=== PATIENT | male | born 1960 | race Caucasian/White ===

== ENCOUNTER 2016-05-09 12:33 | Inpatient (IN) | payer OTHER ==
[~2016-05-09] VITALS: Ht 180.3 cm; Wt 70.8 kg
[2016-05-09 11:50] VITALS: BP 103/54
--- NOTE | 2016-05-09 11:50 | NUR ---
PATIENT ARRIVED IN THE UNIT IN A GURNEY. PATIENT AWAKE, ALERT, ORIENTED AND AMBULATORY. NO S/S OF DISTRESS NOTED. PATIENT ON 2L O2 VIA NC. MIDLINE NOTED TO THE RIGHT UPPER ARM. COLOSTOMY BAG NOTED TO THE LEFT ABD AND CHOLECYSTOSTOMY BAG NOTED TO THE RIGHT ABD, BOTH DRAINING SMALL AMOUNT OF GREENISH DRAINAGE. BED LOWERED WITH CALL LIGHT WITHIN REACH. WILL CONTINUE TO MONITOR
[2016-05-09] MEDS ORDERED: PANTOPRAZOLE SO40 M1 IVP (13:24)
[2016-05-09] MEDS ORDERED: HYDROMORPHONE HC4 M1 IM/IV (13:24)
[2016-05-09] MEDS ORDERED: GLUCAGEN1 MG IVP (13:24)
[2016-05-09] MEDS ORDERED: ZINC GLUCONATE PO (13:24)
[2016-05-09] MEDS ORDERED: PROBIOTIC1 EACH PO (13:24)
[2016-05-09] MEDS ORDERED: OCTREOTIDE IJ (13:24)
[2016-05-09] MEDS ORDERED: LORAZEPAM0.5 M1 PO (13:24)
[2016-05-09] MEDS ORDERED: FENTANYL50 MCG/HR TD (13:24)
[2016-05-09] MEDS ORDERED: VITAMIN C500 M8 PO (13:24)
[2016-05-09] MEDS ORDERED: NOVAPLUS MEROPEN1 GM IV (13:24)
[2016-05-09] MEDS ORDERED: LOVENOX40 MG/0.1 SUBQ (13:24)
[2016-05-09] MEDS ORDERED: DEXTROSE 50% 50 ML SYR IVP PRN (13:25)
[2016-05-09] MEDS ORDERED: INSULIN ASPART SLIDING SCALE 100 UNITS/ML VIAL SUBQ PRN (13:25)
--- NOTE | 2016-05-09 13:55 | NUR ---
SPOKE WITH DR POST. ORDERS TO CONTINUE MEDS FROM [facility]. TO SEE THE PATIENT LATER TODAY
[2016-05-09] MEDS ORDERED: TPN PER PHARMACY MC PRN (14:00)
[2016-05-09] MEDS ORDERED: LORazepam 0.5 MG TAB PO PRN (14:00)
[2016-05-09] MEDS ORDERED: GLUCAGON 1 MG VIAL IVP PRN (14:00)
[2016-05-09] MEDS: HYDROmorphone PFS 4 MG/ML SYR IVP PRN ×3 (14:59→20:35)
[2016-05-09 16:00] VITALS: BP 106/63
[2016-05-09] MEDS: BLOOD GLUCOSE MONITORING 1 DEV DEV FS SCH ×2 (16:30→21:00)
--- NOTE | 2016-05-09 16:30 | NUR ---
PATIENT RESTING CALMLY IN BED, WATCHING TELEVISION. NO S/S OF DISTRESS NOTED
--- NOTE | 2016-05-09 17:30 | NUR ---
PATIENT SEEN BY DR VEGA
--- NOTE | 2016-05-09 18:35 | NUR ---
PATIENT REPORT GIVEN AT BEDSIDE. PATIENT ENDORSED IN STABLE CONDITION
[2016-05-09] MEDS ORDERED: MAGNESIUM CITRATE 300 ML BTL PO ONE (18:55)
--- NOTE | 2016-05-09 19:10 | NUR ---
RECEIVED PT FROM MAYNOR GAMBLE PT IS AAOX4 RESTING ON BED MID LINE ON RT US ILNFUSING TKO AND RT ABD COLECYSTOTOMY DRAINING GREENISH AND OSTOMYK FROM ENTEROCUTANEOUS FISTULA DRAINING YELLOW COLOR LIQUID INITIAL ASSESSMENT DONE.
[2016-05-09 20:00] VITALS: BP 96/53
[2016-05-09] MEDS ORDERED: [UNRECOGNIZED DRUG - OTHER] IV SCH (20:00)
[2016-05-09] MEDS ORDERED: DEXTROSE IV SCH (20:00)
[2016-05-09] MEDS ORDERED: MULTIVITAMIN IV SCH (20:00)
[2016-05-09] MEDS ORDERED: AMINO ACIDS IV SCH (20:00)
[2016-05-09] MEDS: SACCHAROMYCES 250 MG CAP PO SCH (20:38)
[2016-05-09] MEDS ORDERED: MEROPENEM 1,000 MG VIAL IV SCH (21:00)
[2016-05-09] MEDS ORDERED: NON-FORMULARY ITEM (Lactobacillus Acidophilus (Probiotic) 1 EACH) PO SCH (21:00)
--- NOTE | 2016-05-09 21:00 | NUR ---
PT ON TPN ON RT UA MID LINE AFTER PAIN MEDIC PT DENNIES ANY PAIN , PENDING FOR ABD/PELVIS CT WITH ORAL CONTRAST
[2016-05-09] MEDS: MEROPENEM 1,000 MG in NACL 0.9% 100 ML IV SCH (21:04)
[2016-05-09] MEDS ORDERED: MAGNESIUM CITRATE 300 ML BTL ONE (21:11)
[2016-05-10] VITALS (25 sets, daily range): BP systolic 84–144; BP diastolic 43–88
[2016-05-10] MEDS: HYDROmorphone PFS 4 MG/ML SYR IVP PRN ×5 (00:05→17:00)
--- NOTE | 2016-05-10 02:17 | NUR ---
PT CAME BACK FROM ABD/PELVIS CT WITH ORAL CONTRAST
--- NOTE | 2016-05-10 04:05 | NUR ---
PT SLEEPING WELL AFTER PAIN MEDIC GIVEN RT AND LEFT TUBE FROM OSTOMY ARE [id number] WELL YELLOW WISH COLOR
[2016-05-10] MEDS: MEROPENEM 1,000 MG in NACL 0.9% 100 ML IV SCH ×3 (05:00→21:48)
[2016-05-10] MEDS: BLOOD GLUCOSE MONITORING 1 DEV DEV FS SCH ×4 (06:42→21:18)
--- NOTE | 2016-05-10 06:49 | NUR ---
BLOOD SUGAR TEST 105, TICKET TO RIDE AND SURGICAL CHECK LIST READY,AND CONSENT FOR SURGERY PT SLEEPING AFTER PAIN MEDIC GIVEN.
--- NOTE | 2016-05-10 07:30 | NUR ---
RECEIVED PT RESTING COMFORTABLY IN BED, AAOX4, ABLE TO VERBALIZE NEEDS; NO COMPLAINTS OR S/S ACUTE DISTRESS AT THIS TIME. PREOP,ROUTINE/PLAN OF CARE DISCUSSED AND REVIEWED WITH SISTER PRESENT, PT VERBALIZES UNDERSTANDING AND COMPLIANCE. TPN INFUSING WELL TO RIGHT UPPER ARM, SITE ASYMPTOMATIC. ABD RED AND TENDER TO TOUCH. LLQ ABD FISTULA, GREEN DRAINAGE, OUTPUT 700ML AT THIS TIME. RUQ CHOLECYSTOSTOMY. SAFETY PRECAUTIONS MAINTAINED. OR TEAM AT BEDSIDE TO TRANSPORT PT AT THIS TIME, VSS.
--- NOTE | 2016-05-10 07:45 | NUR ---
PT TAKEN TO OR AT THIS TIME IN STABLE CONDITION.
[2016-05-10] MEDS ORDERED: ROCURONIUM 50 MG/5 ML VIAL IV ONE (07:56)
[2016-05-10] MEDS ORDERED: DESFLURANE 240 ML BTL INH ONE (07:56)
[2016-05-10] MEDS ORDERED: LIDOCAINE 2% 100 MG/5 ML SYR IVP ONE (07:56)
[2016-05-10] MEDS ORDERED: ONDANSETRON 4 MG/2 ML VIAL ONE (07:56)
[2016-05-10] MEDS ORDERED: ePHEDrine 50 MG/ML VIAL ONE (07:56)
[2016-05-10] MEDS ORDERED: DEXAMETHASONE 4 MG/ML VIAL ONE (07:56)
[2016-05-10] MEDS ORDERED: PHENYLEPHRINE 10 MG/ML VIAL ONE (07:56)
[2016-05-10] MEDS ORDERED: PROPOFOL 200 MG/20 ML VIAL IV ONE (07:56)
[2016-05-10] MEDS ORDERED: SUCCINYLCHOLINE CHLORIDE 200 MG/10 ML VIAL IVP ONE (07:56)
[2016-05-10] MEDS ORDERED: fentaNYL 0.05 MG/ML VIAL ONE (08:08)
[2016-05-10] MEDS ORDERED: MIDAZOLAM 2 MG/2 ML VIAL ONE (08:08)
[2016-05-10] MEDS: BUPIVACAINE-MPF/EPI 0.25% 30 ML VIAL INJ ONE ×2 (08:31→13:06)
[2016-05-10] MEDS: ENOXAPARIN 40 MG/0.4 ML SYR SUBQ SCH (09:00)
[2016-05-10] MEDS ORDERED: HYDROmorphone 1 MG/ML AMP IVP PRN (09:00)
[2016-05-10] MEDS: SACCHAROMYCES 250 MG CAP PO SCH ×2 (09:00→21:00)
[2016-05-10] MEDS: PANTOPRAZOLE 40 MG INJ VIAL IVP SCH (09:00)
[2016-05-10] MEDS: ASCORBIC ACID 500 MG TAB PO SCH (09:00)
[2016-05-10] MEDS ORDERED: ZINC GLUCONATE 100 MG PO SCH (09:00)
[2016-05-10] MEDS ORDERED: ONDANSETRON 4 MG/2 ML VIAL IVP PRN (09:00)
[2016-05-10] MEDS ORDERED: CLINICAL MONITORING MC SCH (09:00)
--- NOTE | 2016-05-10 09:17 | NUR ---
PATIENT HAS BEEN SCREENED AND CATEGORIZED HIGH NUTRITION RISK. PATIENT WILL BE SEEN WITHIN 1-2 DAYS OF ADMISSION. 05/10/16-05/11/[address]
[2016-05-10] MEDS ORDERED: HYDROmorphone PFS 2 MG/ML SYR ONE (10:56)
--- NOTE | 2016-05-10 11:03 | NUR ---
CM NOTE INITIAL REVIEW FAXED TO [facility] / FAX# [phone], ATTN: HANS [phone]
[2016-05-10] MEDS ORDERED: ALBUMIN HUMAN 5 % 250 ML IV SCH ×2 (11:33→13:00)
--- NOTE | 2016-05-10 12:14 | NUR ---
PER KNITTING MACHINE OPERATOR HELPERTYE MARSHALL PT WILL BE TRANSFERRED TO ICU5 POST-OP.
--- NOTE | 2016-05-10 13:00 | NUR ---
PT AWAKE ALERT AND RESPONSIVE, NO SIGNS OF ACUTE DISTRESS. TRANSFERRED FROM OR. S/P EXP LAP, NOTED ABDOMINAL SURGICAL INCISION WITH DRESSING INTACT AND DRY, ABDOMINAL BINDER IN PLACE. NO SIGNS OF ANY BLEEDING OR DISCHARGE. MARIBELL DRAIN NOTED ALSO ON ABDOMINAL INCISION AT 40CC, SEROSANGUINEOUS FLUID. NG TUBE IN PLACE ON RIGHT NARE, INTACT AND CONNECTED TO HIGH INTERMITTENT SUCTION. NOTED GREENISH FLUID ON CANISTER AT 20CC. DR. VEGA IS AWARE. OFFLOAD TO PRESSURE AREAS, ELEVATED BOTH LEGS ON PILLOWS. SCD'S IN PLACE. PERAZA CATHETER IN PLACE AT 5CC OF YELLOW URINE NOTED. OUTPUT FROM OR AT 325ML REPORTED. WITH RIGHT UPPER ARM PICC AND UNDERGOING 1 UNIT OF PRBC ORDERED. TOLERATING WELL. NO SIGNS OF ADVERSE EFFECTS NOTED. SAFETY PRECAUTIONS MAINTAINED. NO C/O OF PAIN AT THIS TIME. ALL NEEDS ATTENDED. CALL LIGHT WITHIN REACH.
--- NOTE | 2016-05-10 13:34 | NUR ---
PER ASSIGNED OR NURSE. PT WAS GIVEN ALBUMIN X2 FROM OR.
--- NOTE | 2016-05-10 13:46 | NUR ---
WAS SEEN BY Remberto NOGUERA NO ORDERS AT THIS TIME. CONTINUE TO MONITOR.
[2016-05-10] MEDS ORDERED: HYDROmorphone-HP 10 MG in NACL 0.9% 50 ML IV SCH ×2 (14:00→17:30)
--- NOTE | 2016-05-10 14:15 | NUR ---
1 UNIT OF PRBC ADMINISTERED. NO ADVERSE EFFECTS NOTED. CONTINUE TO MONITOR.
--- NOTE | 2016-05-10 14:16 | NUR ---
NEW ORDERS RECEIVED FROM Remberto NOGUERA NOTED AND CARRIED OUT.
[2016-05-10] MEDS ORDERED: ARTIFICIAL TEARS OPHTH OINT 3.5 GM TUBE OP PRN (15:15)
[2016-05-10] MEDS ORDERED: POLYVINYL ALCOHOL 1.4% OP 15 ML SOL OP PRN (15:20)
[2016-05-10] MEDS: INSULIN LISPRO SLIDING SCALE 100 UNITS/ML VIAL SUBQ PRN ×2 (16:41→21:23)
--- NOTE | 2016-05-10 17:03 | NUR ---
NEW LAB ORDERS RECEIVED FROM DR. POST. NOTED AND CARRIED OUT.
[2016-05-10] MEDS ORDERED: NALOXONE 0.4 MG/ML VIAL IVP PRN (17:40)
[2016-05-10] MEDS ORDERED: PROBIOTIC SCREEN 1 EA MISC MC PRN (17:50)
--- NOTE | 2016-05-10 19:19 | NUR ---
PT ALERT AND RESPONSIVE, NO SIGNS OF ACUTE DISTRESS. ENDORSED TO ONCOMING TAG STRINGER NURSE FOR CONTINUITY OF CARE.
--- NOTE | 2016-05-10 19:20 | NUR ---
RECEIVED REPORT FROM KATHYA RN AT BEDSIDE. PATIENT IS AAOX4, ABLE TO FOLLOW COMMANDS AND MAKE NEEDS KNOWN. C/O SEVERE PAIN AT ABD SURGICAL AREA, ON RAIL CAR REPAIRMAN. MD AWARE, NO OTHER ORDER FOR PAIN CONTROL AT THIS TIME. NO S/S SOB/DISTRESS NOTED, LUNG SOUNDS CLEAR, ON O2 AT 6L/MIN WITH MASK. NGT ON RIGHT DAVI WITH HIGH INTERMITTENT SUCTION. CURRENTLY ON NPO EXCEPT MEDS. SR ON MUNICIPAL SERVICES MANAGER. SURGICAL INCISION NOTED ON ABD, S/P EXP LAP TODAY, COVERED WITH DRESSING, C/D/I, MARIBELL DRAIN PRESENT WITH SEROSANGUINEOUS FLUID NOTED, AND ABDOMINAL BINDER IN PLACE. PERAZA CATHETHER IN PLANE, DRAINING WELL TO GRAVITY. ABLE TO MOVE ALL EXTREMITIES, SCD'S ON BLE FOR PREVENTION OF DVT. RIGHT UPPER ARM PICC LINE NOTED, PATENT, C/D/I, RUNNING TPN AT 83ML/HR, PERIPHERAL LINE ON LEFT FOREARM 18GA, RUNNING RAIL CAR REPAIRMAN AT SETTING OF 1MG/HR WITH 0.2MG/15MIN BOLUS. NO SIGNS OF ADVERSE EFFECTS NOTED. SAFETY PRECAUTIONS MAINTAINED. VSS. CALL LIGHT WITHIN REACH, WILL CONTINUE TO MONITOR.
[2016-05-10] MEDS: MULTIVITAMIN IV SCH (20:00)
[2016-05-10] MEDS: AMINO ACIDS IV SCH (20:00)
[2016-05-10] MEDS: [UNRECOGNIZED DRUG - OTHER] IV SCH (20:00)
[2016-05-10] MEDS: DEXTROSE IV SCH (20:00)
--- NOTE | 2016-05-10 20:15 | NUR ---
PATIENT IS ON MUSIC AGENT, REMOVED FENTANYL PATCH ON RIGHT UPPER ARM PER PROTOCOL.
--- NOTE | 2016-05-10 21:30 | NUR ---
PATIENT IS RESTING IN BED, STILL C/O PAIN, OFFERED ICE PAD, PATIENT REFUSED. SCHEDULED MEDICATION GIVEN, PATIENT TOLERATED WELL.
--- NOTE | 2016-05-10 22:00 | NUR ---
PATIENT STILL C/O PAIN AT ABD AREA, REMINDED PATIENT TO USE TELEGRAPH OPERATOR PUMP FOR PAIN, PATIENT STATED THE TELEGRAPH OPERATOR DID NOT WORK FOR PAIN. ASSESSED THE WOUND SITE, DRESSING STILL C/D/I. VSS. Addendum: 05/11/16 at 0542 by Cleo Andre RN CHARGE NURSE NOTIFIED, FRANCES HDEZ MD.
[2016-05-11] VITALS (16 sets, daily range): BP systolic 124–151; BP diastolic 56–81
--- NOTE | 2016-05-11 | NUR ---
PATIENT IS RESTLESSNESS, STILL C/O PAIN AND PAPERBOARD BOX MAKER NOT WORKING, EXPLAINED HOW PAPERBOARD BOX MAKER WORKING, AND DURATION OF THE MEDICATION, PATIENT IS AGITATED, REQUESTED ATIVAN. MEDICATION GIVEN ORDERED.
[2016-05-11] MEDS: LORazepam 2 MG/ML VIAL IVP PRN ×3 (00:29→15:38)
[2016-05-11] MEDS ORDERED: HYDROmorphone 1 MG/ML AMP IVP PRN (00:45)
[2016-05-11] MEDS ORDERED: HYDROmorphone 1 MG/ML AMP ONE (00:57)
--- NOTE | 2016-05-11 01:18 | NUR ---
PATIENT STILL C/O SEVERE PAIN AT ABD AREA, STATED " I CAN'T TOLERATED ANYMORE!" EXTRA ONE TIME DOSE OF DILAUDID GIVEN.
--- NOTE | 2016-05-11 02:00 | NUR ---
PATIENT IS ASLEEP AT THIS TIME. NO CHANGE OF CONDITION, VSS.
--- NOTE | 2016-05-11 04:30 | NUR ---
PATIENT IS AWAKE, C/O SEVERE PAIN AT ABD AREA, EDUCATED PATIENT TO USE PHOTOGRAPHY EDITOR PUMP. VSS.
--- NOTE | 2016-05-11 04:45 | NUR ---
OFFERED PATIENT FOR AM CARE, PATIENT REFUSED AT THIS TIME.
[2016-05-11] MEDS: MEROPENEM 1,000 MG in NACL 0.9% 100 ML IV SCH ×3 (04:49→20:29)
--- NOTE | 2016-05-11 05:00 | NUR ---
PATIENT IS AGITATED, STATED RD SCIENTIST PUMP IS NOT WORKING, PAIN COULD NOT RELEASE. REQUESTED IV PUSH MEDICATION, DR. SILVIA VO, WAITING FOR CALL BACK.
--- NOTE | 2016-05-11 05:30 | NUR ---
PATIENT STILL C/O SEVERE PAIN, DR. VEGA PAGED 2ND TIMES, WAITING FOR CALL BACK.
--- NOTE | 2016-05-11 05:55 | NUR ---
PATIENT IS CRYING AND AGITATED FOR PAIN, DR. VEGA PAGED 3RD TIMES, WAITING FOR CALLING BACK.
[2016-05-11] MEDS ORDERED: HYDROmorphone 1 MG/ML AMP IVP ONE (06:05)
--- NOTE | 2016-05-11 06:10 | NUR ---
DR. VEGA CALL BACK, REPORT DR ABOUT PATIENT CURRENT CONDITION, NEW ORDER GIVEN AND CARRIED OUT.
[2016-05-11] MEDS ORDERED: HYDROmorphone 1 MG/ML AMP IVP SCH (06:30)
[2016-05-11] MEDS: BLOOD GLUCOSE MONITORING 1 DEV DEV FS SCH ×3 (06:54→18:18)
--- NOTE | 2016-05-11 08:00 | NUR ---
RECEIVED REPORT FROM DEEPTI GAMBLE AT BEDSIDE. PATIENT IS AWAKE, ALERT, AND ORIENTED. PT C/O SEVERE PAIN AT ABD SURGICAL AREA, ON DILAUDID DRIP . WILL NOTIFY . BEDSIDE MONITOR SHOWS SR.ROOM AIR, NO S/S SOB/DISTRESS NOTED, LUNG SOUNDS CLEAR. NGT ON RIGHT DAVI WITH HIGH INTERMITTENT SUCTION. SURGICAL INCISION NOTED ON ABD, COVERED WITH DRESSING, MARIBELL DRAIN PRESENT WITH SEROSANGUINEOUS FLUID NOTED, AND ABDOMINAL BINDER IN PLACE. PERAZA CATHETHER IN PLANE WITH SMALL AMOUNT OF LIGHT NORY CLEAR URINE. PT ABLE TO MOVE ALL EXTREMITIES, SCD'S ON BLE FOR PREVENTION OF DVT. RIGHT UPPER ARM PICC LINE NOTED, PATENT AND INTACT, RUNNING TPN AT 83ML/HR, PERIPHERAL LINE ON LEFT FOREARM 18GA, RUNNING OXYGEN SYSTEM TESTER PER MD ORDER. NO SIGNS OF ADVERSE EFFECTS NOTED. SAFETY PRECAUTIONS MAINTAINED. VSS. CALL LIGHT WITHIN REACH, POC DISCUSSED WITH PT, PT VERBALIZED UNDERSTANDING. WILL CONTINUE TO MONITOR.
[2016-05-11] MEDS: ASCORBIC ACID 500 MG TAB PO SCH ×2 (08:50→09:00)
[2016-05-11] MEDS: SACCHAROMYCES 250 MG CAP PO SCH ×3 (08:50→20:13)
[2016-05-11] MEDS: PANTOPRAZOLE 40 MG INJ VIAL IVP SCH (08:51)
[2016-05-11] MEDS: ENOXAPARIN 40 MG/0.4 ML SYR SUBQ SCH (08:53)
--- NOTE | 2016-05-11 08:55 | NUR ---
PATIENT COMPLAINING THAT HE HAS A LOT PAIN AT THE SURGICAL SITE AND HE THINKS THE DILAUDID INSPECTORS AND REGULATORY OFFICERS IS NOT WORKING. PATIENT REQUESTED FOR DILAUDID IVP INSTEAD OF INSPECTORS AND REGULATORY OFFICERS. PLACED A CALL FOR .
--- NOTE | 2016-05-11 09:00 | NUR ---
CALLED BACK ,UPDATED IN PATIENT'S CONDITION ,MADE AWARE OF PATIENT STILL HAS A LOT OF ABDOMINAL SURGICAL PAIN AND PATIENT WANTS TO HAVE DILAUDID IVP INSTEAD OF DILAUDID END FINDER TWISTING DEPARTMENT. ORDER RECEIVED FOR DILAUDID IVP PATIENT REQUESTED.
[2016-05-11] MEDS: HYDROmorphone PFS 2 MG/ML SYR IVP PRN ×6 (09:12→22:24)
--- NOTE | 2016-05-11 10:45 | NUR ---
WAS NOTIFIED OF PATIENT HAS POSITIVE MRSA IN NARES. ORDERS RECEIVED. PATIENT WAS INFORMED. PLACED THE PATIENT ON CONTACT ISOLATION PRECAUTIONS PER PROTOCOL.
--- NOTE | 2016-05-11 10:45 | NUR ---
DR. POST PRESENT AT PT BEDSIDE TO ASSESS PT, UPDATED PT CONDITION.
--- NOTE | 2016-05-11 11:37 | NUR ---
FAXED CONCURRENT REVIEW TO [facility] [phone] PHONE HANS [phone]
--- NOTE | 2016-05-11 12:20 | NUR ---
PT IS RESTING IN BED. ROOM AIR. NO SOB. CALL LIGHT IN REACH, PT VERBALIZED ABD SURGICAL SITE PAIN , WILL GIVE PAIN MEDICATION ORDERED.
[2016-05-11] MEDS: MUPIROCIN 2% OINT 22 GM TUBE TP SCH (12:49)
[2016-05-11] MEDS: CHLORHEXADINE GLUC 2% CLOTH TP SCH (12:49)
--- NOTE | 2016-05-11 14:53 | NUR ---
05/11/16 RD INITIAL ASSESSMENT COMPLETED PLEASE REFER TO NUTRITION ASSESSMENT UNDER CARE ACTIVITY FOR ESTIMATED NUTRITIONAL NEEDS. RD RECOMMENDATIONS: 1. CONTINUE NUTRITION SUPPORT TPN: D 10%, AA 4.25% AT 83 ML/HR WITH 10% LIPIDS AT 125 ML VIA CENTRAL LINE PER PHARMACIST RECOMMENDATIONS. --ADEQUATE TO MEET 80% OF PT ESTIMATED KCAL NEEDS AND 100% OF PT ESTIMATED PROTEIN NEEDS 2. RD WILL F/U 2-3 DAYS; HIGH RISK. LEONEL NATARAJAN RD
--- NOTE | 2016-05-11 15:51 | NUR ---
DR. VEGA CALLED IN , UPDATED PT'S CONDITION AND LABS REPORT WITH WBC 19.2, HGB 9.6, HCT28.5, BAND NEUTROPHILS % 4. ORAL TEMP 99.[address] VEGA. OK TO TRANSFER PT, WILL CARRY OUT.
[2016-05-11] MEDS ORDERED: ANTIFUNGAL CLEAR OINTMENT TP PRN (16:30)
--- NOTE | 2016-05-11 17:29 | NUR ---
PT'S SISTER PRESENT AT BEDSIDE, UPDATED PT'S QUESTIONS, QUESTIONS ANSWERED.
--- NOTE | 2016-05-11 19:02 | NUR ---
REPORT GIVEN TO LINDA GAMBLE. PT RESTING IN BED, NO SOB , VSS.
--- NOTE | 2016-05-11 19:28 | NUR ---
IN BED, BR UP AOX4, NO PAIN, DROWSY FROM DILAUDID IV OK, RIGHT PICC LINE IN TPN ON PERAZA IN O2 2L NC MIDLINE INCISION WITH MARIBELL DRAINAGE, WNL CHECKED BINDER, INTACT WOUND CARE DONE BY WOUND RN REFUSED SCD ISOLATION NGT TO HIGH INTERMITTENT SUCTION PER NURSE VERONICA BAINO, MEDS HELD TO FLOOR AFTER 1999
[2016-05-11] MEDS: AMINO ACIDS IV SCH (20:30)
[2016-05-11] MEDS: MULTIVITAMIN IV SCH (20:30)
[2016-05-11] MEDS: DEXTROSE IV SCH (20:30)
[2016-05-11] MEDS: [UNRECOGNIZED DRUG - OTHER] IV SCH (20:30)
--- NOTE | 2016-05-11 20:38 | NUR ---
no radiotelegraph operator servicer for report rash on sacral region has pain now 12/18, will give dilaudid
--- NOTE | 2016-05-11 21:08 | NUR ---
REPORT GIVEN TO MST NO DISTRESS PAIN OK IV OK TOLD THEM THAT DAY RN SAID TO HOLD PO MEDS REPORTED TO TELL DR VEGA WHEN MARIBELL NO BLEEDING REFUSED SCD
--- NOTE | 2016-05-11 22:10 | NUR ---
RECEIVED TRANSFER PATIENT FROM ICU TO TELE UNIT AT 2205 PM. PATIENT TOLERATED WELL DURING TRANSFERRING. INITIAL ASSESSMENT AND BODY CHECK DONE. PATIENT AAO X 4, ABLE TO FOLLOW COMMAND AND MAKE NEEDS KNOWN. NO S/S OF DISTRESS OR SOB NOTED UPON TRANSFERRING. V/S: 133/72, 95, 98% WITH O2 2 L NC, 23, 100.1 F ORAL AND STILL C/O ABD PAIN 8/10. SKIN WARM/DRY TO TOUCH. CONNECTED NG-TUBE TO HIGH INTERMITTENT SUCTIONING AND MAINTAIN PROPER BODY ALIGNMENT/KEPT PATIENT WARM. MIDLINE ABDOMINAL DRESSING REMAINS CLEAN/DRY AND INTACT; MARIBELL PATENT/DRAINS WITH MINIMAL SANGUINOUS DRAINAGE. INSTRUCTED PATIENT TO UNIT/ENVIRONMENT. ALSO, DISCUSSED PLAN OF CARE, PAIN MANAGEMENT AND MEDICATION REGIMEN WITH PATIENT AND PATIENT VERBALIZED UNDERSTANDING. PLACED PATIENT ON SAFETY/FALL/ASPIRATION PRECAUTIONS AND CONTACT ISOLATION. WILL CONTINUE TO MONITOR AND CALL LIGHT LEFT WITHIN REACH.
--- NOTE | 2016-05-11 22:25 | NUR ---
DR. VEGA HERE TO SEE THE PATIENT AND D/C NG-TUBE AND DID THE DRESSING CHANGE. PATIENT TOLERATED WELL. THEN ADMINISTERED ONE TIME NOW 2 MG DILAUDID IVP FOR C/O ABDOMINAL PAIN PER [place] ORDERED. KEPT PATIENT IN COMFORTABLE POSITION/WARM AND WILL CONTINUE TO MONITOR FOR EFFECTIVENESS.
--- NOTE | 2016-05-11 23:11 | NUR ---
ROUNDS MADE, SEEN PATIENT RESTING COMFORTABLY IN BED WITH EVEN AND UNLABORED RESPIRATORY RATE. PAIN SYMPTOM HAS BEEN STABILIZED AND UNDER CONTROL AFTER 30 MINS POST-MEDICATION. NO POTENTIAL COMPLICATION NOTED AND WILL CONTINUE TO MONITOR.
[2016-05-12] VITALS: BP 124/76
[2016-05-12] MEDS: BLOOD GLUCOSE MONITORING 1 DEV DEV FS SCH ×4 (00:07→17:42)
[2016-05-12] MEDS: LORazepam 2 MG/ML VIAL IVP PRN ×2 (01:06→20:42)
[2016-05-12] MEDS: ANTIFUNGAL CLEAR OINTMENT TP SCH ×2 (01:11→13:42)
[2016-05-12] MEDS: HYDROmorphone PFS 2 MG/ML SYR IVP PRN ×8 (01:15→22:25)
--- NOTE | 2016-05-12 01:22 | NUR ---
ADMINISTERED PRN MEDICATION FOR C/O SEVERE ABDOMINAL PAIN AND ANXIETY WITH EDUCATION GIVEN. ALSO GAVE SOME ICE CHIPS PER PATIENT REQUESTED. V/S REMAINED WNL. WILL CONTINUE TO MONITOR.
[2016-05-12 04:00] VITALS: BP 129/70
[2016-05-12] MEDS: MEROPENEM 1,000 MG in NACL 0.9% 100 ML IV SCH ×3 (04:02→20:41)
--- NOTE | 2016-05-12 04:20 | NUR ---
PATIENT CALLED AND STILL C/O SEVERE ABDOMINAL PAIN. MEDICATED WITH DILAUDID PRN MD'S ORDERED. PATIENT REFUSED TO REPOSITION AT THIS TIME. V/S REMAINED WNL, AFEBRILE AND NO APPARENT DISTRESS NOTED. WILL CONTINUE TO MONITOR.
--- NOTE | 2016-05-12 06:47 | NUR ---
MEDICATED DILAUDID FOR ABDOMINAL PAIN AND THEN D/C PERAZA CATHETER PER DR. VEGA ORDERED. PATIENT TOLERATED WELL. V/S REMAINED WNL WITHOUT S/S OF DISTRESS NOTED. WILL CONTINUE TO MONITOR.
--- NOTE | 2016-05-12 07:14 | NUR ---
ENDORSED PLAN OF CARE TO TYE CAMARA, AT BEDSIDE. PATIENT RESTED WELL THROUGHOUT THE SHIFT AND REMAINED IN STABLE CONDITION. NO APPARENT DISTRESS NOTED.
--- NOTE | 2016-05-12 07:16 | NUR ---
RECEIVED REPORT FROM TYE STARK. PT IS AAOX4, HE IS RESTING IN BED, PICC ON RT UPPER ARM, MARIBELL DRAIN ON LEFT SIDE , O2 2L NC, NO S/S OF RESPIRATORY DISTRESS OR DISCOMFORT NOTED, FALL/SAFETY PRECAUTIONS IN PLACE. DISCUSSED PLAN OF CARE WITH PT, PT VERBALIZED UNDERSTANDING. CALL LIGHT WITHIN REACH. WILL CONTINUE TO MONITOR.
[2016-05-12 08:00] VITALS: BP 117/68
--- NOTE | 2016-05-12 08:50 | NUR ---
SPOKE TO DR. POST AND ASKED REGARDING PO MEDS. PER DR. POST HOLD THE PO MEDS FOR NOW.
[2016-05-12] MEDS: PANTOPRAZOLE 40 MG INJ VIAL IVP SCH ×2 (09:00→09:29)
[2016-05-12] MEDS: ASCORBIC ACID 500 MG TAB PO SCH (09:00)
[2016-05-12] MEDS ORDERED: fentaNYL 0.05 MG/HR PATCH TD SCH (09:00)
[2016-05-12] MEDS: SACCHAROMYCES 250 MG CAP PO SCH ×2 (09:00→21:00)
[2016-05-12] MEDS: ENOXAPARIN 40 MG/0.4 ML SYR SUBQ SCH (09:38)
--- NOTE | 2016-05-12 09:58 | NUR ---
PT IS RESTING IN BED WATCHING TV. PT STATED PAIN 8/10. WILL GIVE PAIN MEDICATION AT THIS TIME.
--- NOTE | 2016-05-12 11:15 | NUR ---
PT IS ASLEEP IN BED. NO S/S OF RESPIRATORY DISTRESS OR DISCOMFORT NOTED. CALL LIGHT WITHIN REACH. WILL CONTINUE TO MONITOR.
[2016-05-12 12:00] VITALS: BP 120/69
[2016-05-12] MEDS: MUPIROCIN 2% OINT 22 GM TUBE TP SCH (13:42)
[2016-05-12] MEDS: CHLORHEXADINE GLUC 2% CLOTH TP SCH (13:43)
--- NOTE | 2016-05-12 14:08 | NUR ---
DR VEGA CHANGED THE DRESSING ON THE PATIENT'S ABD WOUND. ORDERS TO CHANGE THE DRESSING BID
--- NOTE | 2016-05-12 15:11 | NUR ---
PT IS SLEEPING AT THIS TIME. NO S/S OF RESPIRATORY DISTRESS OR DISCOMFORT NOTED. CALL LIGHT WITHIN REACH. WILL CONTINUE TO MONITOR.
[2016-05-12 16:00] VITALS: BP 121/70
--- NOTE | 2016-05-12 16:04 | NUR ---
PT IS RESTING IN BED. PT COMPLAINED OF A 8/10 PAIN. DUE PAIN MEDICATION GIVEN AT THIS TIME.
--- NOTE | 2016-05-12 19:19 | NUR ---
ENDORSED PT TO SOFIA RAZA FOR CONTINUITY OF CARE. PT IS STABLE AT THIS TIME.
--- NOTE | 2016-05-12 19:20 | NUR ---
RECD. RESTING IN BED, AWAKE, A/OX4. RESPIRATION EVEN AND UNLABORED. ON AT 2 LITERS N/C, 02 SAT -97%. TPN INFUSING AT 83 ML/HR, RIGHT UPPER ARM PICC LINE. WITH SALINE LOCK AT THE LEFT FOREARM G22, PATENT, INTACT. INCISION IN THE ABDOMEN COVERED WITH DRESSING DRY AND INTACT WITH ABDOMINAL BINDER, 1 MARIBELL WITH VERY SMALL AMOUNT OF SANGUINOUS FLUID. PAIN IN THE ABDOMEN 03/20, HAD JUST BEEN MEDICATED BY AM NURSE, WILL MONITOR PAIN AND MEDICATE ORDERED. PLAN OF CARE FOR THE SHIFT DISCUSSED. VERBALIZED UNDERSTANDING. NPO.
[2016-05-12 20:00] VITALS: BP_SYST 109; BP_SYST 125; BP_DIAS 63; BP_DIAS 69
[2016-05-12] MEDS: DEXTROSE IV SCH (20:40)
[2016-05-12] MEDS: AMINO ACIDS IV SCH (20:40)
[2016-05-12] MEDS: [UNRECOGNIZED DRUG - OTHER] IV SCH (20:40)
[2016-05-12] MEDS: MULTIVITAMIN IV SCH (20:40)
--- NOTE | 2016-05-12 20:42 | NUR ---
WITH ANXIETY, MEDICATED WITH ATIVAN ORDERED BY CHARGE NURSE PILO.
--- NOTE | 2016-05-12 21:12 | NUR ---
NO ANXIETY NOTED, RESTING COMFORTABLY IN BED.
--- NOTE | 2016-05-12 21:13 | NUR ---
Patient's Plan of Care was discussed and reviewed with STRIPPER APPRENTICE: RY AVILA.
--- NOTE | 2016-05-12 22:35 | NUR ---
REFUSED TO BE TURNED BY SENIOR GEOTECHNICAL ENGINEER. CLAIMED HE IS IN PAIN.
[2016-05-13] VITALS: BP 125/69
[2016-05-13] MEDS: HYDROmorphone PFS 2 MG/ML SYR IVP PRN ×8 (01:18→23:45)
[2016-05-13] MEDS: ANTIFUNGAL CLEAR OINTMENT TP SCH ×2 (01:18→13:09)
--- NOTE | 2016-05-13 01:30 | NUR ---
SLEEPING COMFORTABLY IN BED.
--- NOTE | 2016-05-13 01:30 | NUR ---
SLEEPING COMFORTABLY IN BED.
[2016-05-13 04:22] VITALS: BP 114/69
--- NOTE | 2016-05-13 04:35 | NUR ---
REFUSED TO BE REPOSITION IN BED, CLAIMED HE IS IN PAIN.
[2016-05-13] MEDS: MEROPENEM 1,000 MG in NACL 0.9% 100 ML IV SCH ×3 (04:50→20:48)
--- NOTE | 2016-05-13 06:00 | NUR ---
MINIMAL AMOUNT OF DRAINAGE NOTED FROM WOUND SEEPED THROUGH GAUZE DRESSING, CHANGED DRESSING. TOLERATED WELL.
[2016-05-13] MEDS: BLOOD GLUCOSE MONITORING 1 DEV DEV FS SCH ×4 (06:53→17:48)
--- NOTE | 2016-05-13 07:00 | NUR ---
IN CONTINUOUS PAIN DURING SHIFT. MEDICATED ORDERED. REFUSED ALWAYS TO BE REPOSITIONED.
--- NOTE | 2016-05-13 07:15 | NUR ---
CONDITION REMAIN STABLE. ENDORSED TO JOSE/Lindsey VALDES FOR CONTINUITY OF CARE.
--- NOTE | 2016-05-13 07:18 | NUR ---
RECEIVED REPORT FROM SOFIA RAZA. PT IS RESTING IN BED, A/O X4, ON O2 2L NC, IV ON LEFT FA 22 G. PT HAS A MIDLINE ABDOMEN SURGICAL INCISION. NO S/S OF RESPIRATORY DISTRESS OR DISCOMFORT NOTED. DISCUSSED PLAN OF CARE WITH PT. PT VERBALIZED UNDERSTANDING. ALL NEEDS MET AT THIS TIME. CALL LIGHT WITHIN REACH. WILL CONTINUE TO MONITOR.
[2016-05-13 08:00] VITALS: BP 111/54
[2016-05-13] MEDS: ASCORBIC ACID 500 MG TAB PO SCH (09:00)
[2016-05-13] MEDS: SACCHAROMYCES 250 MG CAP PO SCH ×2 (09:00→21:02)
[2016-05-13] MEDS: PANTOPRAZOLE 40 MG INJ VIAL IVP SCH (09:03)
[2016-05-13] MEDS: ENOXAPARIN 40 MG/0.4 ML SYR SUBQ SCH (09:13)
--- NOTE | 2016-05-13 09:13 | NUR ---
DUE MEDS GIVEN. PT IS RESTING IN BED. PT TOLERATED WELL. NO S/S OF RESPIRATORY DISTRESS OR DISCOMFORT NOTED. CALL LIGHT IS WITHIN REACH. WILL CONTINUE TO MONITOR.
[2016-05-13] MEDS: fentaNYL 0.075 MG/HR PATCH TD SCH (10:44)
--- NOTE | 2016-05-13 10:44 | NUR ---
DUE MEDICATION GIVEN. PT IS RESTING IN BED. CALL LIGHT WITHIN REACH. WILL CONTINUE TO MONITOR.
--- NOTE | 2016-05-13 10:58 | NUR ---
PT COMPLAINED OF 9/10. PRN PAIN MEDICATION GIVEN. PT TOLERATED WELL. NO S/S OF RESPIRATORY DISTRESS OR DISCOMFORT NOTED. CALL LIGHT WITHIN REACH. WILL CONTINUE TO MONITOR.
[2016-05-13 12:00] VITALS: BP 102/68
--- NOTE | 2016-05-13 12:04 | NUR ---
RECEIVED REPORT FROM JOSE GAMBLE, PT IS AAOX4, PT IS ON O2 2L VIA NC, IV TO LEFT FA 22G PATENT AND INTACT. ABDOMEN MIDLINE SURGICAL INCISION WITH ABD DRESSING IN PLACE. DISCUSSED PLAN OF CARE WITH PT. PT VERBALIZED UNDERSTANDING. ALL NEEDS MET AT THIS TIME. CALL LIGHT WITHIN REACH. WILL CONTINUE TO MONITOR.
--- NOTE | 2016-05-13 12:04 | NUR ---
ENDORSED PT TO TYE TRINH FOR CONTINUITY OF CARE. PT IS STABLE AT THIS TIME.
--- NOTE | 2016-05-13 13:09 | NUR ---
DUE MEDICATIONS GIVEN. PT IS RESTING IN BED WITH TWO OF HIS SONS AT BEDSIDE. NO S/S OF RESPIRATORY DISTRESS OR DISCOMFORT NOTED. ALL NEEDS MET AT THIS TIME. CALL LIGHT WITHIN REACH. WILL CONTINUE TO MONITOR.
[2016-05-13] MEDS: CHLORHEXADINE GLUC 2% CLOTH TP SCH (13:10)
[2016-05-13] MEDS: MUPIROCIN 2% OINT 22 GM TUBE TP SCH (13:10)
--- NOTE | 2016-05-13 15:14 | NUR ---
PT RESTING IN BED WATCHING TV. NO S/S OF RESPIRATORY DISTRESS OR DISCOMFORT NOTED. CALL LIGHT WITHIN REACH. WILL CONTINUE TO MONITOR
--- NOTE | 2016-05-13 15:30 | NUR ---
PT STOOD UP FROM BED AND WALKED ABOUT 4 STEPS. PT STATES THAT'S FAR HE CAN GO. WILL CONTINUE TO MONITOR.
[2016-05-13] MEDS: LORazepam 2 MG/ML VIAL IVP PRN (15:39)
--- NOTE | 2016-05-13 15:39 | NUR ---
ATIVAN GIVEN AT THIS TIME FOR RESTLESSNESS,PT BP OF 131/99 HR 101. CALL LIGHT WITHIN REACH.
[2016-05-13 16:00] VITALS: BP 108/71
--- NOTE | 2016-05-13 17:36 | NUR ---
PT COMPLAINED OF ABDOMINAL PAIN 11/18. BP 116/66 HR107. WILL MEDICATE PER MD ORDERS.
[2016-05-13] MEDS: [UNRECOGNIZED DRUG - OTHER] IV SCH ×5 (18:00→20:00)
[2016-05-13] MEDS: DEXTROSE IV SCH ×5 (18:00→20:00)
[2016-05-13] MEDS: MULTIVITAMIN IV SCH ×5 (18:00→20:00)
[2016-05-13] MEDS: AMINO ACIDS IV SCH ×5 (18:00→20:00)
--- NOTE | 2016-05-13 18:00 | NUR ---
TPN DECREASED TO 42ML/HR. PT RESTING WATCHING TV. CALL LIGHT WITHIN REACH. WILL CONTINUE TO MONITOR.
--- NOTE | 2016-05-13 19:19 | NUR ---
ENDORSED PT TO LVN. RY FOR CONTINUITY OF CARE. PT IN STABLE CONDITION.
--- NOTE | 2016-05-13 19:20 | NUR ---
RECD. RESTING IN BED, AWAKE, A/OX4. RESPIRATION EVEN AND UNLABORED. IV OF NS INFUSING AT TKO, LEFT FOREARM G22, TPN INFUSING AT 42 ML/HR, RIGHT UPPER ARM PICC LINE. INCISION IN THE ABDOMEN COVERED WITH DRESSING DRY AND INTACT WITH BINDER, 1 MARIBELL DRAINING MINIMAL AMOUNT OF SANGUINOUS FLUID. PAIN IN THE ABDOMEN 2/10, WILL MEDICATE ORDERED. VERBALIZED THAT THE DURAGESIC PATCH MAKES HIS BLOOD PRESSURE LOW, AND HE CAN'T GET HIS DILAUDID. ASSURED THAT LONG HIS BP IS NOT LOW HE CAN HAVE HIS PAIN SHOT, AND WILL BE GIVEN ON TIME ORDERED. PLAN OF CARE FOR THE SHIFT DISCUSSED. VERBALIZED UNDERSTANDING. FAMILY AT THE BEDSIDE.
--- NOTE | 2016-05-13 19:30 | NUR ---
Patient's Plan of Care was discussed and reviewed with CONCERT OR LECTURE HALL MANAGER: JEAN MARIE
[2016-05-13] MEDS ORDERED: [UNRECOGNIZED DRUG - OTHER] IV SCH (20:00)
[2016-05-13] MEDS ORDERED: AMINO ACIDS IV SCH (20:00)
[2016-05-13] MEDS ORDERED: DEXTROSE IV SCH (20:00)
[2016-05-13] MEDS ORDERED: MULTIVITAMIN IV SCH (20:00)
--- NOTE | 2016-05-13 20:30 | NUR ---
TOLERATING CLEAR LIQUID DIET.
[2016-05-13 23:45] VITALS: BP 119/70
[2016-05-14] MEDS: BLOOD GLUCOSE MONITORING 1 DEV DEV FS SCH
--- NOTE | 2016-05-14 | NUR ---
SLEEPING COMFORTABLY IN BED.
[2016-05-14] MEDS: ANTIFUNGAL CLEAR OINTMENT TP SCH ×2 (01:00→13:57)
[2016-05-14] MEDS: HYDROmorphone PFS 2 MG/ML SYR IVP PRN ×2 (02:58→06:22)
[2016-05-14 04:00] VITALS: BP 116/63
--- NOTE | 2016-05-14 05:00 | NUR ---
DEPRESSED, SAYING BAD WORDS TO NURSES.
[2016-05-14] MEDS: MEROPENEM 1,000 MG in NACL 0.9% 100 ML IV SCH ×3 (06:26→20:16)
[2016-05-14] MEDS ORDERED: oxyCODONE/APAP 5/325 MG 1 TAB TAB PO PRN (07:10)
--- NOTE | 2016-05-14 07:10 | NUR ---
DR. VEGA CALLED CHANGED DILAUDID FROM 2 MG. TO 1 MG. Q 3 HOURS AND PERCOCET PO TO WEAN PATIENT FORM STRONG PAIN MEDICATION.
--- NOTE | 2016-05-14 07:15 | NUR ---
CONDITION REMAIN STABLE. ENDORSED TO SOFIA SAAB FOR CONTINUITY OF CARE.
--- NOTE | 2016-05-14 07:17 | NUR ---
ASSUMED CONTINUITY OF CARE. NO SIGNS AND SYMPTOMS OF ACUTE DISTRESS NOTED. INITIAL ASSESSMENT DONE. KEEP COMFORTABLE ON BED. EXPLAINED DIAGNOSIS, PLAN OF CARE, PAIN MANAGEMENT TEACHING, INCISION CARE, CONTACT ISOLATION PRECAUTION, USE OF CALL LIGHT/BED/TV/BATHROOM. VERBALIZED UNDERSTANDING. FALL PRECAUTION APPLIED. CALL LIGHT WITHIN REACH.
[2016-05-14 08:00] VITALS: BP 107/67
--- NOTE | 2016-05-14 08:00 | NUR ---
Patient's Plan of Care was discussed and reviewed with BRICK OFF BEARER: GERARD
[2016-05-14] MEDS: SACCHAROMYCES 250 MG CAP PO SCH ×2 (09:09→20:16)
[2016-05-14] MEDS: ASCORBIC ACID 500 MG TAB PO SCH (09:09)
[2016-05-14] MEDS: ENOXAPARIN 40 MG/0.4 ML SYR SUBQ SCH (09:10)
[2016-05-14] MEDS: HYDROmorphone 1 MG/ML AMP IVP PRN ×5 (09:39→23:30)
[2016-05-14] MEDS: PANTOPRAZOLE 40 MG INJ VIAL IVP SCH (09:40)
--- NOTE | 2016-05-14 09:45 | NUR ---
PHYSICAL THERAPIST CAME FOR PT TREATMENT. TOLERATED WELL.
[2016-05-14] MEDS ORDERED: ALBUTEROL SULFATE/IPRATROPIU 3 ML SOL IH PRN (11:00)
--- NOTE | 2016-05-14 11:30 | NUR ---
FAXED CONCURRENT REVIEW TO [facility] [phone] PHONE AUGUST [phone]
[2016-05-14 12:00] VITALS: BP 106/67
--- NOTE | 2016-05-14 13:00 | NUR ---
DR. CHAVES, [facility], SEEN PT. AND CHECKED PT. CHART. INFORMED OF PT. BP AT 0800 164/88, AT 1200 160/94. WILL CHECK FOR ORDER LATER. Addendum: 05/14/16 at 1725 by Gumaro Pang LVN WRONG ENTRY: ENTERED AT WRONG PT..
--- NOTE | 2016-05-14 13:37 | NUR ---
05/11/16 RD FOLLOW UP COMPLETED PLEASE REFER TO NUTRITION ASSESSMENT UNDER CARE ACTIVITY FOR ESTIMATED NUTRITIONAL NEEDS. RD RECOMMENDATIONS: 1. CONTINUE FULL LIQUID DIET TOLERATED PER MD 2. IF PT TOLERATES FULL LIQUID DIET CONSIDER ADVANCE DIET TO SOFT AND THEN ADVANCE TO REGULAR TOLERATED. 3. RD WILL F/U 3-5 DAYS; MODERATE RISK. LEONEL NATARAJAN RD
[2016-05-14] MEDS: MUPIROCIN 2% OINT 22 GM TUBE TP SCH (13:58)
[2016-05-14] MEDS: CHLORHEXADINE GLUC 2% CLOTH TP SCH (13:58)
[2016-05-14 16:00] VITALS: BP 104/69
--- NOTE | 2016-05-14 18:56 | NUR ---
IN STABLE CONDITION. ENDORSED TO CHARGE NURSE PRASHANTH JHAVERI.
--- NOTE | 2016-05-14 19:20 | NUR ---
RECEIVED REPORT FROM EDU CHARGE NURSE. PATIENT IS AAOX4, HAS COMPLAIN OF PAIN, WILL ADMINISTER PAIN MEDS PER MD ORDERED. ON NASAL CANNULA AT 3 LPM, NO S/S OF RESPIRATORY DISTRESS/DISCOMFORT NOTED. ABDOMINAL BINDER, MARIBELL DRAIN NOTED WITH NO DISCHARGE. IV SITE IS PATENT AND INTACT, INFUSING WELL. PLAN OF CARE DISCUSSED, VERBALIZED UNDERSTANDING. SAFETY MEASURES CHECKED, CALL LIGHT WITHIN REACH. WILL CONTINUE TO MONITOR.
[2016-05-14 20:00] VITALS: BP 106/67
--- NOTE | 2016-05-14 20:11 | NUR ---
NO DISTRESS/SOB/WHEEZINING NOTED AT THIS TIME. NO INDICATION FOR HHN PRN TX.
--- NOTE | 2016-05-14 20:17 | NUR ---
DUE MEDS GIVEN. PATIENT TOLERATED MEDS WELL.
--- NOTE | 2016-05-14 23:30 | NUR ---
PT COMPLAINED OF PAIN OF 7/10. ADMINISTERED PAIN MEDICATION MD ORDERED.
[2016-05-15] VITALS: BP 116/75
[2016-05-15] MEDS: ANTIFUNGAL CLEAR OINTMENT TP SCH ×2 (01:07→14:46)
--- NOTE | 2016-05-15 02:05 | NUR ---
PT SLEEPING. NO S/S OF RESPIRATORY DISTRESS/DISCOMFORT NOTED.
[2016-05-15] MEDS: HYDROmorphone 1 MG/ML AMP IVP PRN ×5 (02:33→20:16)
--- NOTE | 2016-05-15 02:33 | NUR ---
PT COMPLAINED PAIN OF 10/10. V/S CHECKED. ADMINISTERED PAIN MEDICATION MD ORDERED.
[2016-05-15 04:00] VITALS: BP 112/68
[2016-05-15] MEDS: MEROPENEM 1,000 MG in NACL 0.9% 100 ML IV SCH ×3 (04:01→20:15)
[2016-05-15] MEDS: LORazepam 2 MG/ML VIAL IVP PRN (04:14)
--- NOTE | 2016-05-15 04:14 | NUR ---
V/S CHECKED. PT IS ANXIOUS, ADMINISTERED ATIVAN MD ORDERED.
--- NOTE | 2016-05-15 07:30 | NUR ---
ENDORSED PT TO DAY SHIFT NURSE FOR CONTINUITY OF CARE. PT IN STABLE CONDITION.
--- NOTE | 2016-05-15 07:30 | NUR ---
RECEIVED PATIENT ASLEEP NO REPORT OF DISTRESS AT THIS TIME. CALL LIGHT WITHIN REACH, SIDE RAILS UP
[2016-05-15 08:00] VITALS: BP 113/78
[2016-05-15] MEDS: SACCHAROMYCES 250 MG CAP PO SCH ×2 (08:41→20:15)
[2016-05-15] MEDS: PANTOPRAZOLE 40 MG INJ VIAL IVP SCH (08:41)
[2016-05-15] MEDS: ASCORBIC ACID 500 MG TAB PO SCH (08:42)
[2016-05-15] MEDS: ENOXAPARIN 40 MG/0.4 ML SYR SUBQ SCH (08:46)
--- NOTE | 2016-05-15 10:29 | NUR ---
SS NOTE: [facility] MIKHAIL MAXWELL AND I SPOKE WITH PT BEDSIDE REGARDING SNF PLACEMENT AT [facility]. PT WAS IN AGREEMENT AND STATED THAT HE HAS BEEN THERE IN THE PAST.
--- NOTE | 2016-05-15 10:30 | NUR ---
OER DR POST, PT MAY BE DISCHARGED TOMORROW IF PATIETN CONTINUE TO GET BETTER. PT ABLE TO AMBULATE WITH PT
--- NOTE | 2016-05-15 11:00 | NUR ---
[facility] [facility] [place]. ENDORSED TO NONA. PT DENIES ANY SX OF CP
--- NOTE | 2016-05-15 11:02 | NUR ---
FAXED CONCURRENT REVIEW TO [facility] [phone] HANS [phone] AUTH FOR [facility], [id number]
--- NOTE | 2016-05-15 11:09 | NUR ---
SS NOTE: PER CANDIS FROM [facility] ([phone]), PT CAN GO TO ROOM 215C UPON DISCHARGE.
[2016-05-15 12:00] VITALS: BP 118/68
--- NOTE | 2016-05-15 13:10 | NUR ---
PT REFUSED FOR IV ATB TO BE DONE. PT WILL BE CHANGED LINENS AT THIS TIME
[2016-05-15] MEDS: MUPIROCIN 2% OINT 22 GM TUBE TP SCH (14:45)
[2016-05-15] MEDS: CHLORHEXADINE GLUC 2% CLOTH TP SCH (14:46)
--- NOTE | 2016-05-15 15:00 | NUR ---
PT IS ASLEEP RESTING COMFORTABLY. CALL LIGHT WITHIN REACH, SIDE RAILS UP FOR SAFETY. IV PATENT.
[2016-05-15] MEDS: oxyCODONE/APAP 5/325 MG 1 TAB TAB PO PRN (17:22)
--- NOTE | 2016-05-15 18:36 | NUR ---
NO REPORTS OF PAIN AT THIS TIME.
--- NOTE | 2016-05-15 19:32 | NUR ---
ENDORSED TO NURSE CANDIDA FOR CONT OF CARE. CALL LIGHT WITHIN REACH. SIDE RAILS UP FOR SAFETY
--- NOTE | 2016-05-15 19:33 | NUR ---
RECEIVED PT IN STABLE CONDITION FROM TYE DEVI. NO SOB, NO SIGNS OF DISTRESS. PT ON 2L O2 NC. VS STABLE. IV TO LT FA 18G ASYMPTOMATIC, INTACT, PATENT, IVF RUNNING TKO. PICC LINE TO RT UPPER ARM PATENT, ASYMPTOMATIC, INTACT, SALINE LOCKED. PT WITH INCISION AND ELZBIETA TO ABDOMEN S/P EXPLR LAP WITH INDICATED PROCEDURES. DRESSING DRY AND INTACT, MARIBELL DRAIN TO LT SIDE OF ABDOMEN WITH SCANT SEROSANGUINEOUS DRAINAGE. PT C/O ABD PAIN, WILL MEDICATE PER MD ORDER. PT IS AOX4, AMBULATES WITH ASSIST. PT ON CONTACT PRECAUTIONS FOR MRSA OF NARES. PLAN OF CARE DISCUSSED WITH PT. SAFETY MEASURES IN PLACE. CALL LIGHT WITHIN REACH. WILL CONTINUE TO MONITOR.
[2016-05-15 20:00] VITALS: BP 108/63
[2016-05-15] MEDS: MORPHINE TAB ER 15 MG TABER PO SCH (20:15)
--- NOTE | 2016-05-15 20:16 | NUR ---
PT TOLERATED DUE MEDS WELL. MEDICATED PT FOR PAIN PER MD ORDER. VS STABLE. PT ON 2L O2 NC. NO SOB, NO SIGNS OF DISTRESS. IV SITE ASYMPTOMATIC, INTACT, PATENT, IVPB RUNNING. PLAN OF CARE DISCUSSED WITH PT. SAFETY MEASURES IN PLACE. CALL LIGHT WITHIN REACH. WILL CONTINUE TO MONITOR.
--- NOTE | 2016-05-15 22:44 | NUR ---
PT AWAKE, C/O PAIN AFTER TRYING TO HAVE A BM, TOLD PT WHEN HIS NEXT PAIN MEDICATIONS ARE DUE, PT STATED HE WISHES TO WAIT UNTIL HIS DILAUDID IS DUE. NO SOB, NO SIGNS OF DISTRESS. PT ON 2L O2 NC. IV SITES ASYMPTOMATIC, INTACT, SALINE LOCKED. PLAN OF CARE DISCUSSED WITH PT. SAFETY MEASURES IN PLACE. CALL LIGHT WITHIN REACH. WILL CONTINUE TO MONITOR.
[2016-05-16] VITALS: BP 111/63
[2016-05-16] MEDS: HYDROmorphone 1 MG/ML AMP IVP PRN ×4 (00:16→15:10)
--- NOTE | 2016-05-16 00:16 | NUR ---
VS STABLE. PT ON 2L O2 NC. MEDICATED PT FOR PAIN PER MD ORDER. IV AND MIDLINE SITE ASYMPTOMATIC, INTACT, PATENT, SALINE LOCKED. PLAN OF CARE DISCUSSED WITH PT. SAFETY MEASURES IN PLACE. CALL LIGHT WITHIN REACH. WILL CONTINUE TO MONITOR.
[2016-05-16] MEDS: ANTIFUNGAL CLEAR OINTMENT TP SCH (01:49)
--- NOTE | 2016-05-16 02:19 | NUR ---
PT ASLEEP IN BED. PT ON 2L O2 NC. IV AND MIDLINE SITE ASYMPTOMATIC, INTACT, SALINE LOCKED. SAFETY MEASURES IN PLACE. CALL LIGHT WITHIN REACH. WILL CONTINUE TO MONITOR.
[2016-05-16] MEDS: oxyCODONE/APAP 5/325 MG 1 TAB TAB PO PRN ×3 (03:16→14:40)
--- NOTE | 2016-05-16 03:16 | NUR ---
PT C/O ABD PAIN WITH BURNING, REQUESTED FOR ME TO LOOSEN ABD BINDER. LOOSENED ABD BINDER AND MEDICATED PT FOR PAIN PER MD ORDER. NO SOB, NO SIGNS, OF DISTRESS, PT ON 2L O2 NC. IV AND MIDLINE SITE ASYMPTOMATIC, INTACT, PATENT, SALINE LOCKED. PLAN OF CARE DISCUSSED WITH PT. SAFETY MEASURES IN PLACE. CALL LIGHT WITHIN REACH. WILL CONTINUE TO MONITOR.
[2016-05-16] MEDS: MEROPENEM 1,000 MG in NACL 0.9% 100 ML IV SCH ×2 (04:33→13:08)
--- NOTE | 2016-05-16 07:15 | NUR ---
ENDORSED PT IN STABLE CONDITION TO TYE OLMEDO. ALL NEEDS HAVE BEEN MET AT THIS TIME.
--- NOTE | 2016-05-16 07:20 | NUR ---
RECEIVED REPORT FROM SENIOR INVESTMENT ANALYST RN. PT IS SLEEPING. NO S/S OF ACUTE CARDIAC/RESPIRATORY DISTRESS OR DISCOMFORT. SAFETY MEASURES IN PLACE, CALL LIGHT WITHIN REACH. WILL CONTINUE PLAN OF CARE, AND CONTINUE TO MONITOR.
[2016-05-16 08:00] VITALS: BP 108/65
[2016-05-16] MEDS: ENOXAPARIN 40 MG/0.4 ML SYR SUBQ SCH (09:00)
[2016-05-16] MEDS ORDERED: PROTONIX TR40 M1 PO (09:18)
[2016-05-16] MEDS ORDERED: MS-CONTIN15 MG PO (09:18)
[2016-05-16] MEDS ORDERED: NORCO 10-325 T1 EACH PO (09:18)
[2016-05-16] MEDS ORDERED: HYDROMORPHONE IVP (09:18)
[2016-05-16] MEDS ORDERED: FLORASTOR 33 MG1 CAP PO (09:18)
[2016-05-16] MEDS ORDERED: COLACE100 MG PO (09:18)
[2016-05-16] MEDS ORDERED: IPRATROPIUM BROM3 M1 IH (09:18)
[2016-05-16] MEDS: SACCHAROMYCES 250 MG CAP PO SCH (09:25)
[2016-05-16] MEDS: PANTOPRAZOLE 40 MG INJ VIAL IVP SCH (09:25)
[2016-05-16] MEDS: ASCORBIC ACID 500 MG TAB PO SCH (09:25)
[2016-05-16] MEDS: MORPHINE TAB ER 15 MG TABER PO SCH (09:25)
--- NOTE | 2016-05-16 09:31 | NUR ---
CM NOTE PATIENT PLACED ON WILL-CALL FROM [facility]IA [facility] GOING TO [facility]. AWARE THAT PATIENT WILL NEED 2L 02 VIA OR. Addendum: 05/16/16 at 1238 by Bala Thomas RN ETA [id number]
--- NOTE | 2016-05-16 09:40 | NUR ---
CM NOTE CONCURRENT REVIEW FAXED TO [facility] / FAX# [phone], ATTN: HANS [phone]
[2016-05-16] MEDS ORDERED: NOVAPLUS MEROPEN1 GM IV (09:41)
[2016-05-16] MEDS: fentaNYL 0.075 MG/HR PATCH TD SCH (09:55)
[2016-05-16] MEDS ORDERED: DOCUSATE SODIUM 250 MG GELCAP PO SCH ×2 (10:00→21:00)
--- NOTE | 2016-05-16 10:00 | NUR ---
PT TOLERATED AM MEDS WELL. NO S/S OF ACUTE DISTRESS OR DISCOMFORT. CALL LIGHT WITHIN REACH, WILL CONTINUE PLAN OF CARE.
--- NOTE | 2016-05-16 12:30 | NUR ---
AWAKE AND ALERT RESPONSIVE TO TRANSFER ENGINEER VERBAL COMMANDS WITH LUNCH TRAY AT THIS TIME BREATH SOUNDS LEFT SIDE EXP WHEEZE RIGHT SIDE INSP CRACKLES PATIENT REQUEST HHN PRN THERAPY AT A LATER TIME
--- NOTE | 2016-05-16 13:30 | NUR ---
PT WITH PHYSICAL THERAPY, AMBULATING WITH ASSIST WELL. NO S/S OF ACUTE DISTRESS OR DISCOMFORT. WILL CONTINUE TO MONITOR.
--- NOTE | 2016-05-16 13:39 | NUR ---
PHYSICAL THERAPISTS AND ADVERTISING CAMPAIGN MANAGER AT BEDSIDE APARTMENT RENTAL CLERK TO ATTEMPT HHN PRN THERAPY AT A LATER TIME
--- NOTE | 2016-05-16 13:50 | NUR ---
POST PHYSICAL THERAPY AMBULATION PATIENT PRESENTING WITH INCREASED SOB RR 28 SATURATION 91% ON SUPPLEMENTAL OXYGN AT 2LPM VIA NC LOC AWAKE AND ALERT RESPONSIVE HHN PRH THERAPY GIVEN AT THIIS TIME TOLERATED WELL WITHOUT INCIDENT PATIENT C/O NASAL DRYNESS WITH SUPPLEMENTAL OXYGEN USAGE POST HHN THERAPY ADDED HUMIDIFIER
--- NOTE | 2016-05-16 16:00 | NUR ---
DISCHARGE INSTRUCTIONS PROVIDED, PT VERBALIZED UNDERSTANDING. DISCHARGE PAPERWORK SIGNED, PROVIDED A COPY. REMOVED ARM BANDS. REMOVED IV, INTACT. CHANGED INTO [place]. SON, ADAM ACEVEDO, AWARE OF TRANSFER. REPORT GIVEN TO TYE MONTES FROM [place]. MEDICAL TRANSPORT PRESENT, PT BEING TRANSFERRED VIA [facility].
--- NOTE | 2016-05-16 16:20 | NUR ---
PHYSICAL THERAPY CO-SIGN The Physical Therapy Progress Notes documented by Reel Blade Bender Furnace Tender have been reviewed. Reviewed/Co-Signed by: Sarai Díaz Documentation Done by:ESSIE SALEH DIRECTOR OF VIDEO ANALYTICS PROGRESS VARSHA; WILL BENEFIT W/ P.T. AFTER ACUTE STAY. Addendum: 05/17/16 at 1101 by Sarai Díaz PT Amended: Links added.
== END 2016-05-16 16:00 | DRG 221 ==
LOC: MTU 12:33 → MIC 05-10 13:00 → MTU 05-11 22:05
PROVIDERS: ADMIT Hospitalist; ATTEND Hospitalist
PROC: 3E0336Z Introduction of Nutritional Substance into Peripheral Vein, Percutaneous Approach (ICD-10-PCS; 2016-05-09)
PROC: 05H733Z Insertion of Infusion Device into Right Axillary Vein, Percutaneous Approach (ICD-10-PCS; 2016-05-09)
PROC: 0WPF0JZ Removal of Synthetic Substitute from Abdominal Wall, Open Approach (ICD-10-PCS; 2016-05-10)
PROC: 0FT40ZZ Resection of Gallbladder, Open Approach (ICD-10-PCS; 2016-05-10)
PROC: 0WQF0ZZ Repair Abdominal Wall, Open Approach (ICD-10-PCS; 2016-05-10)
PROC: 0DCH0ZZ Extirpation of Matter from Cecum, Open Approach (ICD-10-PCS; 2016-05-10)
PROC: 0WBF0ZZ Excision of Abdominal Wall, Open Approach (ICD-10-PCS; 2016-05-10)
PROC: 0DN80ZZ Release Small Intestine, Open Approach (ICD-10-PCS; 2016-05-10)
PROC: 0F9400Z Drainage of Gallbladder with Drainage Device, Open Approach (ICD-10-PCS; 2016-05-10)
PROC: 30233N1 Transfusion of Nonautologous Red Blood Cells into Peripheral Vein, Percutaneous Approach (ICD-10-PCS; 2016-05-10)
PROC: 0DT80ZZ Resection of Small Intestine, Open Approach (ICD-10-PCS; principal; 2016-05-10 08:00)
DX: K63.2 Fistula of intestine (principal); R64 Cachexia; K65.9 Peritonitis, unspecified; E44.0 Moderate protein-calorie malnutrition; T85.79XA Infection and inflammatory reaction due to other internal prosthetic devices, implants and grafts, initial encounter; Y83.1 Surgical operation with implant of artificial internal device as the cause of abnormal reaction of the patient, or of later complication, without mention of misadventure at the time of the procedure; K81.9 Cholecystitis, unspecified; F33.9 Major depressive disorder, recurrent, unspecified; J44.9 Chronic obstructive pulmonary disease, unspecified; F41.9 Anxiety disorder, unspecified; G89.4 Chronic pain syndrome; K43.9 Ventral hernia without obstruction or gangrene; Z87.891 Personal history of nicotine dependence; Z93.3 Colostomy status; Z68.1 Body mass index [BMI] 19.9 or less, adult; Z98.890 Other specified postprocedural states